=== PATIENT | female | born 1995 | race Caucasian/White ===

== ENCOUNTER 2017-06-15 17:37 | Emergency (ER) | payer BC ==
[2017-06-15] MEDS ORDERED: Ibuprofen TAB* 600 MG PO ONE (19:42)
--- NOTE | 2017-06-15 20:05 | RAD ---
Indication: Lateral LEFT ankle pain following twisting injury 2 days ago. Comparison: No relevant prior exams available on the [facility] for comparison. Technique: AP, mortise, and lateral views LEFT ankle. Report: Normal articular alignment. Negative for fracture. Unremarkable soft tissue contours. IMPRESSION: No radiographic evidence for LEFT ankle injury.
[2017-06-15 20:11] VITALS: BP 115/64
--- NOTE | 2017-06-15 20:21 | UC ---
Lower Extremity/Ankle HPI - HPI Summary HPI Summary: 22 year old female with ankle pain . c/o of L heel pain that started last fri of unknown origin. Yesterday she competed in a [employer] tournament and afterward, her L heel was in more pain. She states today she has a lot of pain applying pressure to the heel on her L foot. Slight swelling noted to the medial aspect of L foot, no bruising or redness noted. [ End ] - History of Current Complaint Chief Complaint: UCLowerExtremity Stated Complaint: LEFT ANKLE/HEEL Time Seen by Provider: 06/15/17 19:30 Hx Obtained From: Patient Hx Last Menstrual Period: 05/23/17 Onset/Duration: Gradual Onset Severity Initially: Moderate Severity Currently: Moderate Pain Intensity: 4 Aggravating Factor(s): Standing, Ambulation Alleviating Factor(s): Rest, Elevation Able to Bear Weight: Yes - Allergies/Home Medications Allergies/Adverse Reactions: Allergies Allergy/AdvReac Type Severity Reaction Status Date / Time No Known Allergies Allergy Verified 06/15/17 18:17 Home Medications: Home Medications Acetaminophen TAB* [Tylenol TAB*] 650 mg PO Q4H PRN 06/15/17 [History Confirmed 06/15/17] Norgestimate-Ethinyl Estradiol [Tri-Sprintec 0.18/0.215/0.25 mg-35 Mcg] 1 tab PO DAILY 06/15/17 [History Confirmed 06/15/17] PMH/Surg Hx/FS Hx/Imm Hx Previously Healthy: Yes - Surgical History Surgical History: Yes Surgery Procedure, Year, and Place: ACL RECONSTRUCTION - Social History Occupation: Student Lives: Dormitory/Roommates Alcohol Use: Occasionally Substance Use Type: None Smoking Status (MU): Never Smoked Tobacco Review of Systems Musculoskeletal: Arthralgia - left ankle Is Patient Immunocompromised?: No All Other Systems Reviewed And Are Negative: Yes Physical Exam Triage Information Reviewed: Yes Appearance: Well-Appearing, No Pain Distress, Well-Nourished Vital Signs: Initial Vital Signs Temp 98.3 F 06/15/17 18:07 Pulse 69 06/15/17 18:07 Resp 14 06/15/17 18:07 BP 125/80 06/15/17 18:07 Pulse Ox 100 06/15/17 18:07 Vital Signs Reviewed: Yes Respiratory Exam: Normal Cardiovascular Exam: Normal Musculoskeletal Exam: Normal Musculoskeletal: Positive: Strength Intact, ROM Intact, No Edema, Other: - left medial ankle tenderness and lateral right foot tenderness. peripheral pulses intact. mild eechymosis left lateral just distal to the malleolus, FROM of ankle. no homans. no achilles tendon weakness or tenderness. strength 5/5 Neurological Exam: Normal Psychological Exam: Normal Lower Extremity Course/Dx - Course Course Of Treatment: discussed ICE/heat, NSAIDs, PT and if not improved in 2-3 days then go to ortho she was agreeable. placed in gel splint and post op shoe. no explosive movements advised for 3-4 days but can start to rehab it - Differential Dx/Diagnosis Differential Diagnosis/HQI/PQRI: Contusion, Fracture (Closed), Sprain, Strain Provider Diagnoses: Left medial ankle sprain Discharge - Discharge Plan Condition: Good Disposition: HOME Patient Education Materials: Ankle Sprain (ED) Referrals: Javi Shaw MD [Medical Doctor] - (if needed Ortho referral ) Non Staff,Doctor [Primary Care Provider] -
== END 2017-06-15 20:43 | disposition home or self-care (01) ==
LOC: UCCORT 17:37
DX: S93.492A Sprain of other ligament of left ankle, initial encounter (principal); X58.XXXA Exposure to other specified factors, initial encounter; Y93.75 Activity, martial arts; Y92.9 Unspecified place or not applicable
CPT/HCPCS: 99213; A9270-GY; G0463

== ENCOUNTER 2017-07-28 13:00 | Emergency (ER) | payer BC ==
[2017-07-28 13:26] VITALS: BP 128/72
--- NOTE | 2017-07-28 14:01 | RAD ---
HISTORY: Right knee pain and effusion, history of ACL repair COMPARISONS: None VIEWS: 4, Frontal, lateral, axial, and oblique views of the right knee FINDINGS: BONE DENSITY: Normal. BONES: There is post surgical change to the distal femur and proximal tibia. JOINTS: There is no arthropathy. There is no suprapatellar joint effusion or lipohemarthrosis. ALIGNMENT: There is no dislocation. SOFT TISSUES: Unremarkable. OTHER FINDINGS: None. IMPRESSION: POSTSURGICAL CHANGE. NO ACUTE OSSEOUS INJURY. IF SYMPTOMS PERSIST, RECOMMEND REPEAT IMAGING.
--- NOTE | 2017-07-28 14:15 | UC ---
Knee Pain HPI - HPI Summary HPI Summary: RIGHT KNEE PAIN AND SWELLING X 2 DAYS FELT A PULL ON HER RIGHT KNEE 2 DAYS AGO SHE WAS DOING CARDIO WORKOUT INCREASE IN RIGHT KNEE PAIN SINCE , + SWELLING , LIMITED ROM - History of Current Complaint Chief Complaint: UCLowerExtremity Stated Complaint: RIGHT KNEE PAIN Time Seen by Provider: 07/28/17 13:08 Hx Obtained From: Patient Hx Last Menstrual Period: 07/18/17 ?: No Onset/Duration: Sudden Onset, Lasting Days - 2, Still Present Severity Initially: Moderate Severity Currently: Severe Character: Aching, Throbbing, Stiffness Aggravating Factor(s): Movement, Weight Bearing, Prolonged Standing, Stairs Alleviating Factor(s): Rest Associated Signs And Symptoms: Positive: Swelling, Weakness. Negative: Redness , Bruising, Fever Able to Bear Weight: Yes - Allergies/Home Medications Allergies/Adverse Reactions: Allergies Allergy/AdvReac Type Severity Reaction Status Date / Time No Known Allergies Allergy Verified 07/28/17 13:17 Home Medications: Home Medications Ibuprofen TAB* [Motrin TAB* 600 MG] 600 mg PO Q6H PRN 07/28/17 [History Confirmed 07/28/17] Norgestimate-Ethinyl Estradiol [Nxg-Vn-Yvtogd 0.18/0.215/0.25 mg-25 Mcg] 1 tab PO DAILY 07/28/17 [History Confirmed 07/28/17] PMH/Surg Hx/FS Hx/Imm Hx - Additional Past Medical History Additional PMH: HISTORY OF RIGHT KNEE SURGERY / ACL REPAIR - Surgical History Surgical History: Yes Surgery Procedure, Year, and Place: ACL AND MCL RECONSTRUCTION - Family History Known Family History: Negative: Diabetes - Social History Alcohol Use: Occasionally Substance Use Type: None Smoking Status (MU): Never Smoked Tobacco Review of Systems Constitutional: Negative Skin: Negative Eyes: Negative ENT: Negative Respiratory: Negative Cardiovascular: Negative Is Patient Immunocompromised?: No All Other Systems Reviewed And Are Negative: Yes Physical Exam Triage Information Reviewed: Yes Appearance: Well-Appearing, No Pain Distress, Well-Nourished Vital Signs: Initial Vital Signs Temp 98.7 F 07/28/17 13:18 Pulse 89 07/28/17 13:18 Resp 16 07/28/17 13:18 BP 128/72 07/28/17 13:18 Pulse Ox 99 07/28/17 13:18 Vital Signs Reviewed: Yes Eyes: Positive: Conjunctiva Clear ENT: Positive: Normal ENT inspection, Hearing grossly normal, Pharynx normal Neck exam: Normal Neck: Positive: Supple, Nontender Respiratory: Positive: Chest non-tender, Lungs clear, Normal breath sounds Cardiovascular: Positive: RRR, No Murmur, Pulses Normal Musculoskeletal Exam: Normal Musculoskeletal: Positive: Other: - RIGHT KNEE: + SWELLING , + EFFUSION , LIMITED ROM ON FLEXION AND EXTENSION LIMITED EXAM DUE TO SEVER PAIN Neurological: Positive: Alert Diagnostics - Laboratory Diagnostic Studies Completed/Ordered: RIGHT KNEE XRAY: POSTSURGICAL CHANGE. NO ACUTE OSSEOUS INJURY. IF SYMPTOMS PERSIST, RECOMMEND REPEAT. IMAGING. Knee Pain Course/Dx - Differential Dx/Diagnosis Provider Diagnoses: RIGHT KNEE EFFUSION Discharge - Discharge Plan Condition: Stable Disposition: HOME Prescriptions: Naproxen [Naproxen 500 mg] 500 mg PO BID #20 tab Patient Education Materials: Swollen Knee Joint (ED) Referrals: Javi Shaw MD [Medical Doctor] - 1 Day Non Staff,Doctor [Primary Care Provider] -
== END 2017-07-28 14:20 | disposition home or self-care (01) ==
LOC: UCCORT 13:00
DX: M25.461 Effusion, right knee (principal)
CPT/HCPCS: 99212; G0463